=== PATIENT | female | born 2000 | race Caucasian/White ===

== ENCOUNTER 2020-03-27 20:49 | Emergency (ER) | payer MEDICAID ==
[~2020-03-27] VITALS: Ht 160 cm; Wt 73.0 kg
[2020-03-27] MEDS ORDERED: DIPHENHYDRAMINE 50MG CAPSULE PO ONE (21:15)
[2020-03-27] MEDS ORDERED: FAMOTIDINE 20MG TABLET PO ONE (21:15)
[2020-03-27] MEDS ORDERED: PREDNISONE 20MG TABLET PO ONE (21:15)
[2020-03-27 23:04] VITALS: BP 128/62
== END 2020-03-27 23:05 | disposition home or self-care (01) ==
LOC: ER 20:49
DX: L50.9 Urticaria, unspecified (principal); T78.40XA Allergy, unspecified, initial encounter; X58.XXXA Exposure to other specified factors, initial encounter
CPT/HCPCS: 99284; J7512; Q0163

== ENCOUNTER 2020-03-29 03:50 | Emergency (ER) | payer MEDICAID ==
[~2020-03-29] VITALS: Ht 160 cm; Wt 63.0 kg
[2020-03-29 04:15] VITALS: BP 115/64
[2020-03-29] MEDS ORDERED: FAMOTIDINE 20MG TABLET PO ONE (04:15)
[2020-03-29] MEDS ORDERED: DIPHENHYDRAMINE 50MG CAPSULE PO ONE (04:15)
== END 2020-03-29 04:19 | disposition home or self-care (01) ==
LOC: ER 03:50
DX: L50.9 Urticaria, unspecified (principal)
CPT/HCPCS: 99283; Q0163